=== PATIENT | female | born 1960 | race Caucasian/White ===

== ENCOUNTER 2023-01-04 15:44 | Emergency (ER) | payer MEDICAID, OTHER ==
[~2023-01-04] VITALS: Ht 157.5 cm; Wt 53.1 kg
[~2023-01-04 15:44] MED LIST: GAB400C PO; LEVO75TA6 PO; LEVO88TA4 PO; METH-562 PO; TAMO20TA9 PO; TRAM-297 PO
[2023-01-04 16:13] VITALS: BP 137/82; PULSE 76; RESP 16; TEMP 97.5; O2SAT 98
== END 2023-01-04 16:58 | disposition home or self-care (01) ==
LOC: ER 15:44
DX: S90.31XA Contusion of right foot, initial encounter (principal); F17.210 Nicotine dependence, cigarettes, uncomplicated; Z88.2 Allergy status to sulfonamides; Z88.6 Allergy status to analgesic agent; Z90.710 Acquired absence of both cervix and uterus; Z98.51 Tubal ligation status; W20.8XXA Other cause of strike by thrown, projected or falling object, initial encounter; Y93.89 Activity, other specified; Y92.89 Other specified places as the place of occurrence of the external cause; Y99.8 Other external cause status
CPT/HCPCS: 73630

== ENCOUNTER → 2023-08-20 | Outpatient (CLI) | payer MEDICAID ==
[~2023-08-20] MED LIST changes: +ALBUTEROL SULF 2.5 MG/0.5ML(0.5%) NEB SOLN ONE
== END | disposition home or self-care (01) ==
LOC: RT 09:15
PROVIDERS: ATTEND Internal Medicine Pulmonary Disease
DX: K44.9 Diaphragmatic hernia without obstruction or gangrene (principal)
CPT/HCPCS: 94060; 94727; 94729

== ENCOUNTER 2024-02-09 16:01 | Inpatient (IN) | payer MEDICAID ==
[~2024-02-09] VITALS: Ht 157.5 cm; Wt 51.8 kg
[~2024-02-09 16:01] MED LIST changes: -ALBUTEROL SULF 2.5 MG/0.5ML(0.5%) NEB SOLN ONE
--- NOTE | 2024-02-09 17:37 | ED.PDOC ---
History of Present Illness HPI Comments HPI: Poor Historian. 62-year-old female complains of approximately nine day history of respiratory symptoms of sore throat cough runny nose and congestion. She also complains of decreased appetite and generalized weakness. She also complains of some occasional dizziness. She also complains of nausea and diarrhea. High Vitals: Temp:98.9 F Heart rate: 85 RR: 18 BP: 113/86 02 sat: 95% on room air PMH: thyroid disease, osteoporosis, gerd, breast cancer PSH: appendix, hernia repair social history: endorses tobacco use, endorses ETOH use, denies drug use medications: levothyroxine, plavix, allergies: NKDA REVIEW OF SYSTEMS: CONSTITUTIONAL: Denies acute: fever, diaphoresis, chills, HEAD: Denies acute: headache, photophobia Eyes: Denies acute: Double vision, vision loss, eye pain, eye discharge. EARS: Denies acute: tinnitus, hearing loss, ear discharge, ear pain, THROAT: Denies acute: swelling, difficulty swallowing , pain with swallowing, change in voice. NECK: Denies acute: neck pain, neck swelling, stiff neck. HEART: Denies acute : chest pain, palpitations, LUNGS: Denies acute: SOB, wheezing, hemoptysis ABDOMEN: Denies acute: melena , hematemesis, hematochezia SKIN: Denies acute: rash, redness, lesions, itchiness. EXTREMITIES: Denies acute: calf pain, numbness, tingling, weakness, denies pain in extremity. Denies acute: Low back pain. Neuro: Denies acute: focal neurological deficit, motor or sensory focal neurological deficit, tremors, seizure like activity, confusion, change in mental status, loss of bowel or bladder function, cauda equina like symptoms. : Denies acute: dysuria, hematuria, flank pain, increase in urinary frequency. PSYCH: Denies acute: hallucination, suicidal ideation, homicidal ideation. FEMALE: Denies acute: abnormal vaginal bleeding, foul odor, unusual discharge. PHYSICAL EXAM: General: no acute distress, awake and alert. Head: normocephalic, atraumatic. Neck: supple, trachea is midline, no swelling. Throat: Normal phonation. Eyes:, no erythema, no purulent discharge, no proptosis, no icterus. Heart: regular rate, regular rhythm, no significant murmur appreciated. Lungs: no apparent respiratory distress, Able to speak in full sentences. No wheezing, no rhonchi, no crackles. No stridors Clear to auscultation bilaterally. Abdomen: non tender to palpation, non distended, soft, no guarding, no rebound, + bowel sounds. Neuro: Awake, Alert, oriented to name, self, situation, follows commands GCS=15. Speech is normal. Skin: no petechia, no purpura, no cyanosis, non-pale, not jaundice. Lower extremities: --no - Pitting edema no deformity, no focal swelling, no calf TTP. Makes eye contact. moves all four extremities. Face: no apparent facial droop. Ambulating in the ED independently. Chief Complaint: Nausea/Vomiting Time Seen by MD: 16:16 Primary Care Provider: ROSA Reviewed Notes: Nurses Notes, Allergies Allergies: Coded Allergies: Hydromorphone (Unverified Allergy, Unknown, 09/08/14) Sulfa Antibiotics (Unverified Allergy, Unknown, 09/08/14) Home Meds Reported Medications Tramadol Hcl (Ultram) 50 Mg Tab, 1 TAB PO Q6HR PRN for MILD PAIN, #30 TAB 09/09/14 Tamoxifen Citrate (Tamoxifen Citrate) 20 Mg Tab, 1 TAB PO DAILY, #30 TAB 5 Refills 09/09/14 Methocarbamol (Robaxin) 500 Mg Tab, 1 TAB PO DAILY, #60 TAB 09/09/14 Levothyroxine Sodium (Levothyroxine Sodium) 75 Mcg Tab, 1 TAB PO DAILY, #30 TAB 5 Refills 09/09/14 Levothyroxine Sodium (Levothyroxine Sodium) 88 Mcg Tab, 1 TAB PO DAILY, #30 TAB 5 Refills 15 Gabapentin (NEURONTIN CAPSULE) 400 Mg Cp, 1 CAP PO DAILY, #90 CAP 2 Refills 09/09/14 Information Source: Patient Mode of Arrival: Ambulatory Past Medical History PAST MEDICAL HISTORY: Cancer, Thyroid Surgical History: Appendectomy, Hernia Repair, Hysterectomy, Tubal Ligation DENSITOMETRIST History: Ovarian Cysts Family History Family History: Unknown Social History Smoker: Cigarettes, Greater Than 1 Pack/Day Alcohol: Denies ETOH Use Drugs: Denies Drug Use Lives In: Home Was a procedure done? Was a procedure done?: No Differential Dx Considerations may include: Includes but not limited to thyroid disease, encephalopathy, electrolyte abnormality, sepsis, infection, intracranial pathology, drug adverse effects, arrhythmia, kidney insufficiency, ACS, CVA, malignancy, anemia GI symptoms: DDX include Diverticulitis, colitis, gastroenteritis, acute abdomen, SBO, enteritis, constipation, volvulus, appendicitis, Gallbladder disease, choledocolithiasis, ascending cholangitis, pancreatitis, intraAbdominal mass/neoplasm, hepatitis, UTI, pylonephritis, kidney stone, aneurysm, dissection, Inflammatory bowel disease, gastroparesis, ischemic bowel, ovarian torsion, ovarian cyst/mass, tubo-ovarian abscess, PID, STD. X-Ray, Labs, Meds, VS Vital Signs Date Time Temp Pulse Resp B/P (MAP) Pulse Ox O2 Delivery O2 Flow Rate FiO2 02/09/24 22:41 97.8 72 16 110/65 (80) 95 97.8 02/09/24 20:09 65 20 99 Room Air 02/09/24 20:09 97.4 65 20 147/76 (99) 99 97.4 02/09/24 16:40 98.9 85 18 113/86 (95) 95 Lab Test 02/09/24 22:33 02/09/24 21:40 02/09/24 18:54 02/09/24 18:04 Range/Units Influenza Type A Antigen Pending Influenza Type B Antigen Pending SARS-CoV-2 Antigen (Rapid) Pending Urine Color Colorless Yellow Urine Clarity Clear Clear Urine pH 6.5 5.0-9.0 Urine Specific [place] 1.005 1.001-1.035 Urine Protein Negative Negative Urine Ketones Negative Negative Urine Blood Negative Negative /uL Urine Nitrite Negative Negative Urine Bilirubin Negative Negative Urine Urobilinogen Normal Negative mg/dL Urine Leukocyte Esterase Trace Negative /uL Urine RBC None seen 0 - 4 /hpf Urine WBC 1 0 - 5 /hpf Urine Squamous Epithelial Cells Few <5 /hpf Urine Bacteria None seen None Seen /hpf Urine Glucose Normal Normal mg/dL Troponin I High Sensitivity 5 6 </=34 ng/L Sodium Level 142 136-145 mmol/L Potassium Level 2.9 L 3.5-5.1 mmol/L Chloride Level 108 H 98-107 mmol/L Carbon Dioxide Level 27 20-31 mmol/L Anion Gap 7 5-15 Blood Urea Nitrogen 21 9-23 mg/dL Creatinine 0.89 0.550-1.02 mg/dL Glomerular Filtration Rate Calc 73 >90 mL/min BUN/Creatinine Ratio 23.6 H 10.0-20.0 Serum Glucose 90 74-106 mg/dL Lactic Acid Level 0.7 0.4-2.0 mmol/L Calcium Level 9.6 8.7-10.4 mg/dL Magnesium Level 1.9 1.6-2.6 mg/dL Total Bilirubin 0.4 0.2-1.0 mg/dL Aspartate Amino Transferase (AST) 31 13-40 U/L Alanine Aminotransferase (ALT) 29 7-40 U/L Alkaline Phosphatase 88 46-116 U/L B-Type Natriuretic Peptide 22.22 0-100 pg/mL Total Protein 6.9 5.7-8.2 g/dL Albumin 4.3 3.2-4.8 g/dL Lipase 35 12-53 U/L Test 02/09/24 13:04 Range/Units White Blood Count 5.3 4.4-10.8 10^3/uL Red Blood Count 4.35 4.0-5.20 10^6/uL Hemoglobin 13.6 12.2-16.2 g/dL Hematocrit 41.6 36.0-46.0 % Mean Corpuscular Volume 95.6 80.0-100.0 fL Mean Corpuscular Hemoglobin 31.4 28.0-32.0 pg Mean Corpuscular Hemoglobin Concent 32.8 32.0-36.0 g/dL Red Cell Distribution Width 14.4 H 11.8-14.3 % Platelet Count 257 140-450 10^3/uL Mean Platelet Volume 8.7 6.9-10.8 fL Neutrophils (%) (Auto) 62.4 37.0-80.0 % Lymphocytes (%) (Auto) 25.2 10.0-50.0 % Monocytes (%) (Auto) 10.7 0.0-12.0 % Eosinophils (%) (Auto) 1.4 0.0-7.0 % Basophils (%) (Auto) 0.3 0.0-2.0 % Neutrophils # (Auto) 3.3 1.6-8.6 10 ^3/uL Lymphocytes # (Auto) 1.3 0.4-5.4 10 ^3/uL Monocytes # (Auto) 0.6 0-1.3 10 ^3/uL Eosinophils # (Auto) 0.1 0-0.8 10 ^3/uL Basophils # (Auto) 0 0-0.2 10 ^3/uL Nucleated Red Blood Cells 0.1 % Current Medications Medications (Trade) Dose Ordered Sig/Yenni Route Start Time Stop Time Status Last Admin Sodium Chloride 1,000 ml @ 1,000 mls/hr Q1H ONCE IV 02/09/24 17:45 02/09/24 18:44 DC 02/09/24 19:52 Ondansetron HCl (Zofran) 8 mg ONCE ONCE IV 02/09/24 17:45 02/09/24 17:46 DC 02/09/24 20:05 Potassium Chloride (Klor-Con Tablet) 60 meq ONCE ONCE PO 02/09/24 19:00 02/09/24 19:23 DC 02/09/24 19:52 Pantoprazole Sodium (Protonix Tablet) 40 mg ONCE ONCE PO 02/09/24 21:45 02/09/24 21:46 DC 02/09/24 21:58 Sucralfate (Carafate Tab) 1 gm ONCE ONCE PO 02/09/24 21:45 02/09/24 21:46 DC 02/09/24 21:58 [place] [id number] Ph: [phone] DIAGNOSTIC IMAGING Diagnostic Imaging Report : [id number] Signed PATIENT: RAFIQ CRAWFORD ACCT: [id number] UNIT: [id number] : 1960 LOC: ER ROOM / BED: / AGE / SEX: 63 / F ADM STATUS: REG ER SERVICE [id number] ORDERING PHYSICIAN: VELMA FULLER DO PROCEDURE(s): ABPL - CT AB PEL WO CON-NO ORAL OR IV REASON: N/D abd pain ORDER NUMBER(s): [id number], ACCESSION NUMBER(s): [id number] Procedure: CT CT AB PEL WO CON-NO ORAL OR IV 02/09/2024 06:39 PM Indication:N/D abd pain. Comparison Study: None available at time of dictation. Technique: Axial images were obtained and reformatted in coronal and sagittal planes. All CT scans at this medical facility are performed using dose modulation techniques as appropriate to a performed exam including the following: Automated exposure control was utilized; adjustment of the MA and/or KV according to patient size; and use of iterative reconstruction technique. CT Dose: CTDI volume is 5.07 mGy. Dose-length product is 249.58 mGy*cm FINDINGS: Lower Chest: Unremarkable. Hepatobiliary: Unremarkable. Spleen: Unremarkable. Pancreas: Unremarkable. Adrenal Glands: Unremarkable. tract: The kidneys are normal in size bilaterally without hydronephrosis or nephrolithiasis. The urinary bladder is unremarkable. GI tract: Distal esophageal mural thickening noted. The stomach is grossly normal in appearance. No evidence of small bowel obstruction. The large bowel is unremarkable. The appendix is not visualized. No inflammatory change is noted in the right lower quadrant. Surgical clips are seen in the right lower quadrant which may indicate prior appendectomy. Lymphatics: No mesenteric, retroperitoneal or periportal lymphadenopathy. Vasculature: Aorta is normal in caliber. Scattered calcified plaques are noted. Pelvic Organs: Unremarkable Bones/soft tissues: No acute abnormality. Other: None. IMPRESSION: 1. No CT evidence for acute intra-abdominal or intrapelvic process. No evidence of bowel obstruction or enteritis. 2. Distal esophageal mural thickening suggestive of esophagitis. ATED BY: MERARI SWANSON MD DICTATED DATE/TIME: 02/09/241924 SIGNED BY: MERARI SWANSON MD SIGNED DATE/TIME: 02/09/241924 CC: Time of 1ST Reevaluation: 22:49 Reevaluation 1ST: Improved Patient Education/Counseling: Diagnosis, Treatment Family Education/Counseling: No Family Present Comments Patient presented with the above HPI.--generalized weakness-and GI symptoms---workup was initiated. patient was found with the above mentioned diagnosis. Patient was given: Fluids, potassium replacement, Zofran, Protonix, Carafate. Patient ED course and VS have been stabilized. Patient has been reassessed in the ED and remained in a stable condition. Pertinent incidental findings were discussed with the patient and/or family. Patient/family voices understanding and is agreeable with plan. Patient has been observed in the ED adequate length of time to insure improvement/stability. patient was admitted to the medicine team for further evaluation and treatment of their presentation. Stool studies are still pending. All the reports of any imaging studies that were ordered by myself were reviewed by myself. Departure 1 Departure Time of Disposition: 19:45 Impression: Primary Impression: Generalized weakness Additional Impressions: Hypokalemia Diarrhea Disposition: ADMITTED INPATIENT Admit to: Tele Condition: Guarded Discharged With: Self Critical Care Note Critical Care Time?: No Heart Score Heart Score: Heart Score Response (Comments) Value History Slightly Suspicious 0 EKG Normal 0 Age >65 2 Risk Factors No known risk factors 0 Troponin Normal limit 0 Total 2 I personally scribed for VELMA FULLER DO ([email or web address]) on 02/09/24 at 17:37. Electron[facility] submitted by Al [facility] I personally scribed for VELMA FULLER DO ([email or web address]) on 02/09/24 at 18:09. Electronically submitted by Al Walter ([employer]). I personally scribed for VELMA FULLER DO ([email or web address]) on 02/09/24 at 19:47. Electronically submitted by Al Walter [facility] VELMA FULLER DO Feb 09, 2024 17:37
[2024-02-09 18:13] LABS: Basophils # (auto) 0 10 ^3/uL (0-0.2); Basophils % (auto) 0.3 % (0.0-2.0); Eosinophils # (auto) 0.1 10 ^3/uL (0-0.8); Eosinophils % (auto) 1.4 % (0.0-7.0); Hematocrit 41.6 % (36.0-46.0); Hemoglobin 13.6 g/dL (12.2-16.2); Lymphocytes # (auto) 1.3 10 ^3/uL (0.4-5.4); Lymphocytes % (auto) 25.2 % (10.0-50.0); Mean Corpuscular Hemoglobin 31.4 pg (28.0-32.0); Mean Corpuscular Hgb Conc. 32.8 g/dL (32.0-36.0); Mean Corpuscular Volume 95.6 fL (80.0-100.0); Monocytes # (auto) 0.6 10 ^3/uL (0-1.3); Monocytes % (auto) 10.7 % (0.0-12.0); Neutrophils # (auto) 3.3 10 ^3/uL (1.6-8.6); Neutrophils % (auto) 62.4 % (37.0-80.0); Nucleated Red Blood Cells % 0.1 %; Platelet Count (auto) 257 10^3/uL (140-450); Red Blood Cells 4.35 10^6/uL (4.0-5.20); Red Cell Distribution Width 14.4 % (11.8-14.3); White Blood Cell 5.3 10^3/uL (4.4-10.8)
[2024-02-09 18:31] LABS: Alanine Aminotransferase 29 U/L (7-40); Albumin 4.3 g/dL (3.2-4.8); Alkaline Phosphatase 88 U/L (46-116); Anion Gap 7 (5-15); Aspartate Aminotransferase 31 U/L (13-40); BUN/Creatinine Ratio 23.6 (10.0-20.0); Blood Urea Nitrogen 21 mg/dL (9-23); Calcium 9.6 mg/dL (8.7-10.4); Carbon Dioxide 27 mmol/L (20-31); Chloride 108 mmol/L (98-107); Glucose 90 mg/dL (74-106); Magnesium 1.9 mg/dL (1.6-2.6); Potassium 2.9 mmol/L (3.5-5.1); Sodium 142 mmol/L (136-145)
[2024-02-09 18:32] LABS: Bilirubin, Total 0.4 mg/dL (0.2-1.0); Total Protein 6.9 g/dL (5.7-8.2)
[2024-02-09 18:48] LABS: Lipase 35 U/L (12-53)
--- NOTE | 2024-02-09 19:28 | DVH ---
Procedure: CT CT AB PEL WO CON-NO ORAL OR IV 02/09/2024 06:39 PM Indication:N/D abd pain. Comparison Study: None available at time of dictation. Technique: Axial images were obtained and reformatted in coronal and sagittal planes. All CT scans at this medical facility are performed using dose modulation techniques as appropriate t o a performed exam including the following: Automated exposure control was utilized; adjustment of th e MA and/or KV according to patient size; and use of iterative reconstruction technique. CT Dose: CTDI volume is 5.07 mGy. Dose-length product is 249.58 mGy*cm FINDINGS: Lower Chest: Unremarkable. Hepatobiliary: Unremarkable. Spleen: Unremarkable. Pancreas: Unremarkable. Adrenal Glands: Unremarkable. tract: The kidneys are normal in size bilaterally without hydronephrosis or nephrolithiasis. The urinary bladder is unremarkable. GI tract: Distal esophageal mural thickening noted. The stomach is grossly normal in appearance. No evidence of small bowel obstruction. The large bowel is unremarkable. The appendix is not visualize d. No inflammatory change is noted in the right lower quadrant. Surgical clips are seen in the right lower quadrant which may indicate prior appendectomy. Lymphatics: No mesenteric, retroperitoneal or periportal lymphadenopathy. Vasculature: Aorta is normal in caliber. Scattered calcified plaques are noted. Pelvic Organs: Unremarkable Bones/soft tissues: No acute abnormality. Other: None. IMPRESSION: 1. No CT evidence for acute intra-abdominal or intrapelvic process. No evidence of bowel obstruction or enteritis. 2. Distal esophageal mural thickening suggestive of esophagitis.
[2024-02-09] MEDS: SODIUM CHLORIDE 0.9% 1,000 ML IV ONE (19:52)
[2024-02-09] MEDS: POTASSIUM CHL 20 Meq TABLET PO ONE (19:52)
[2024-02-09] MEDS: ONDANSETRON HCL 4 MG/2 ML VIAL IV ONE (20:05)
[2024-02-09 21:58] LABS: Urine Bacteria None Seen /hpf (None Seen)
[2024-02-09] MEDS: SUCRALFATE 1 GM TAB PO ONE (21:58)
[2024-02-09] MEDS: PANTOPRAZOLE 40 MG TAB PO ONE (21:58)
[2024-02-09 22:10] LABS: Urine Blood Negative /uL (Negative); Urine Clarity Clear (Clear); Urine Color Colorless (Yellow); Urine Protein, UAD Negative (Negative); Urine Specific Gravity 1.005 (1.001-1.035); Urine Urobilinogen Normal (Negative); Urine WBC 1 /hpf (0 - 5); Urine pH 6.5 (5.0-9.0)
[2024-02-09 23:00] VITALS: O2SAT 98
--- NOTE | 2024-02-09 23:07 | DVH ---
CHEST RADIOGRAPH Indication:sob, cough Technique: Single frontal view of the chest was obtained Comparison: None FINDINGS: Lines and Tubes: None Lungs: No focal consolidation. Pleura: No effusion. No pneumothorax. Cardiomediastinal contours: Unremarkable Bones: No acute osseous abnormality. IMPRESSION: No acute cardiopulmonary disease.
[2024-02-09 23:11] LABS: Rapid Influenza A Negative (Negative); Rapid Influenza B Negative (Negative)
[2024-02-09 23:12] LABS: COVID19 ANTIGEN SOFIA FIA NEGATIVE (NEGATIVE)
[2024-02-10] VITALS (8 sets, daily range): BP systolic 97–135; BP diastolic 50–74; PULSE 63–71; RESP 16–18; TEMP 97.5–98.4; O2SAT 90–99
[2024-02-10] MEDS ORDERED: ONDANSETRON HCL 4 MG/2 ML VIAL IV PRN
--- NOTE | 2024-02-10 00:06 | DVHHP2 ---
History of Present Illness Reason for Visit: Diarrhea History of Present Illness 63-year-old female presents for evaluation of diarrhea. The patient endorses a one-week history of having watery diarrhea. She associates having generalized weakness, fatigue, decreased appetite, runny nose and nausea. Denies fever or chills. No cardiac or respiratory complaints. Past Medical History Hypothyroid, breast cancer, GERD, osteoporosis Past Surgical History Appendectomy and hernia repair Smoke: <1 pack per day ALCOHOL: none Drugs: None Lives: with Family Review of Systems Review of Systems Review of systems are currently negative otherwise addressed in HPI. Allergies: Coded Allergies: Hydromorphone (Unverified Allergy, Unknown, 09/08/14) Sulfa Antibiotics (Unverified Allergy, Unknown, 09/08/14) Medications Current Medications Medications Dose Ordered Sig/Yenni Route Start Time Stop Time Status Last Admin Dose Admin Pantoprazole Sodium 40 mg DAILY@0600 PO 02/10/24 06:00 UNV Ceftriaxone Sodium 50 ml @ 100 mls/hr DAILY@09 IV 02/10/24 09:00 UNV Metronidazole 100 ml @ 100 mls/hr Q8HR IV 02/10/24 06:00 UNV Levothyroxine Sodium 88 mcg QAM@0600 PO 02/10/24 06:00 UNV Gabapentin 400 mg DAILY PO 02/10/24 10:00 UNV Loperamide HCl 2 mg PRN PRN PO 02/10/24 00:00 UNV Acetaminophen/ Hydrocodone Bitart 1 tab Q4HP PRN PO 02/10/24 00:00 UNV Ondansetron HCl 4 mg Q4HP PRN IV 02/10/24 00:00 UNV Acetaminophen 650 mg Q6HP PRN PO 02/10/24 00:00 UNV Exam Vital Signs Vital Signs Date Time Temp Pulse Resp B/P (MAP) Pulse Ox O2 Delivery O2 Flow Rate FiO2 02/09/24 23:00 98 Room Air* 0 21 02/09/24 22:41 97.8 72 16 110/65 (80) 97.8 Exam Gen: 62-year-old female in mild distress Skin: Warm, dry, normal color and texture, no rash. HEENT: Normocephalic atraumatic, mucous membranes moist and pink. Neck: Cervical and supraclavicular nodes normal without enlargement, trachea is midline, thyroid gland is normal without masses. Pulmonary: Clear to auscultation and percussion bilaterally. Cardiac: Regular rate and rhythm. No murmur Abdomen: Soft, nontender, nondistended, bowel sounds present all 4 quadrants, no guarding, no rigidity, no organomegaly. Extremities: No cyanosis, clubbing, no edema Neuro: Cranial nerves II through XII grossly intact, normal affect and speech, no focal motor deficits. Labs/Xrays ORDERING PHYSICIAN: VELMA FULLER DO PROCEDURE(s): ABPL - CT AB PEL WO CON-NO ORAL OR IV REASON: N/D abd pain ORDER NUMBER(s): [id number], ACCESSION NUMBER(s): [id number] Procedure: CT CT AB PEL WO CON-NO ORAL OR IV 02/09/2024 06:39 PM Indication:N/D abd pain. Comparison Study: None available at time of dictation. Technique: Axial images were obtained and reformatted in coronal and sagittal planes. All CT scans at this medical facility are performed using dose modulation techniques as appropriate to a performed exam including the following: Automated exposure control was utilized; adjustment of the MA and/or KV according to patient size; and use of iterative reconstruction technique. CT Dose: CTDI volume is 5.07 mGy. Dose-length product is 249.58 mGy*cm FINDINGS: Lower Chest: Unremarkable. Hepatobiliary: Unremarkable. Spleen: Unremarkable. Pancreas: Unremarkable. Adrenal Glands: Unremarkable. tract: The kidneys are normal in size bilaterally without hydronephrosis or nephrolithiasis. The urinary bladder is unremarkable. GI tract: Distal esophageal mural thickening noted. The stomach is grossly normal in appearance. No evidence of small bowel obstruction. The large bowel is unremarkable. The appendix is not visualized. No inflammatory change is noted in the right lower quadrant. Surgical clips are seen in the right lower quadrant which may indicate prior appendectomy. Lymphatics: No mesenteric, retroperitoneal or periportal lymphadenopathy. Vasculature: Aorta is normal in caliber. Scattered calcified plaques are noted. Pelvic Organs: Unremarkable Bones/soft tissues: No acute abnormality. Other: None. IMPRESSION: 1. No CT evidence for acute intra-abdominal or intrapelvic process. No evidence of bowel obstruction or enteritis. 2. Distal esophageal mural thickening suggestive of esophagitis. Labs Test 02/09/24 22:33 02/09/24 21:40 02/09/24 18:54 02/09/24 18:04 Range/Units Influenza Type A Antigen Negative Negative Influenza Type B Antigen Negative Negative SARS-CoV-2 Antigen (Rapid) Negative NEGATIVE Urine Color Colorless Yellow Urine Clarity Clear Clear Urine pH 6.5 5.0-9.0 Urine Specific [place] 1.005 1.001-1.035 Urine Protein Negative Negative Urine Ketones Negative Negative Urine Blood Negative Negative /uL Urine Nitrite Negative Negative Urine Bilirubin Negative Negative Urine Urobilinogen Normal Negative mg/dL Urine Leukocyte Esterase Trace Negative /uL Urine RBC None seen 0 - 4 /hpf Urine WBC 1 0 - 5 /hpf Urine Squamous Epithelial Cells Few <5 /hpf Urine Bacteria None seen None Seen /hpf Urine Glucose Normal Normal mg/dL Troponin I High Sensitivity 5 </=34 ng/L Sodium Level 142 136-145 mmol/L Potassium Level 2.9 L 3.5-5.1 mmol/L Chloride Level 108 H 98-107 mmol/L Carbon Dioxide Level 27 20-31 mmol/L Anion Gap 7 5-15 Blood Urea Nitrogen 21 9-23 mg/dL Creatinine 0.89 0.550-1.02 mg/dL Glomerular Filtration Rate Calc 73 >90 mL/min BUN/Creatinine Ratio 23.6 H 10.0-20.0 Serum Glucose 90 74-106 mg/dL Lactic Acid Level 0.7 0.4-2.0 mmol/L Calcium Level 9.6 8.7-10.4 mg/dL Magnesium Level 1.9 1.6-2.6 mg/dL Total Bilirubin 0.4 0.2-1.0 mg/dL Aspartate Amino Transferase (AST) 31 13-40 U/L Alanine Aminotransferase (ALT) 29 7-40 U/L Alkaline Phosphatase 88 46-116 U/L B-Type Natriuretic Peptide 22.22 0-100 pg/mL Total Protein 6.9 5.7-8.2 g/dL Albumin 4.3 3.2-4.8 g/dL Lipase 35 12-53 U/L Test 02/09/24 13:04 Range/Units White Blood Count 5.3 4.4-10.8 10^3/uL Red Blood Count 4.35 4.0-5.20 10^6/uL Hemoglobin 13.6 12.2-16.2 g/dL Hematocrit 41.6 36.0-46.0 % Mean Corpuscular Volume 95.6 80.0-100.0 fL Mean Corpuscular Hemoglobin 31.4 28.0-32.0 pg Mean Corpuscular Hemoglobin Concent 32.8 32.0-36.0 g/dL Red Cell Distribution Width 14.4 H 11.8-14.3 % Platelet Count 257 140-450 10^3/uL Mean Platelet Volume 8.7 6.9-10.8 fL Neutrophils (%) (Auto) 62.4 37.0-80.0 % Lymphocytes (%) (Auto) 25.2 10.0-50.0 % Monocytes (%) (Auto) 10.7 0.0-12.0 % Eosinophils (%) (Auto) 1.4 0.0-7.0 % Basophils (%) (Auto) 0.3 0.0-2.0 % Neutrophils # (Auto) 3.3 1.6-8.6 10 ^3/uL Lymphocytes # (Auto) 1.3 0.4-5.4 10 ^3/uL Monocytes # (Auto) 0.6 0-1.3 10 ^3/uL Eosinophils # (Auto) 0.1 0-0.8 10 ^3/uL Basophils # (Auto) 0 0-0.2 10 ^3/uL Nucleated Red Blood Cells 0.1 % Assessment/Plan Assessment/Plan Assessment Generalized weakness Electrolyte imbalance Diarrhea Plan Admit the patient to [facility] to the hospitalist Replete electrolytes Rocephin/Flagyl Stool bacterial culture pending Continue treatment per orders. Plan discussed with: Patient My Orders [facility] Procedure Category Date Status Time Pantoprazole Tablet PHA 02/10/24 Logged (Protonix Tablet) 06:00 Ceftriaxone 1gm/50ml PHA 02/10/24 Logged D5w (Rocephin) 09:00 Ceftriaxone 1gm/50ml PHA 02/10/24 Logged D5w (Rocephin) 00:00 Metronidazole PHA 02/10/24 Logged 500mg/100ml (Flagyl 06:00 Metronidazole PHA 02/10/24 Logged 500mg/100ml (Flagyl 00:00 Levothyroxine Tablet PHA 02/10/24 Logged (Synthroid Tablet) 06:00 Gabapentin Capsule PHA 02/10/24 Logged (Neurontin Capsule) 10:00 Loperamide Capsule PHA 02/10/24 Logged (Imodium Capsule) 00:00 Loperamide Capsule PHA 02/10/24 Logged (Imodium Capsule) 00:00 Basic Metabolic Panel LAB 02/10/24 Logged 04:00 Admit ADMIT 02/09/24 Transmitted 23:52 Hydrocodone-Acet PHA 02/10/24 Logged 5/325mg Tab ([place] 00:00 Ondansetron Hcl PHA 02/10/24 Logged (Zofran) 00:00 Complete Blood Count LAB 02/10/24 Transmitted 04:00 Condition: Stable LOGAN 02/09/24 In Process 23:52 Acetaminophen Tablet PHA 02/10/24 Logged (Tylenol Tablet) 00:00 Clear Liq Diet DIET 02/10/24 Transmitted Breakfast Bedrest With Bathroom LOGAN 02/09/24 In Process Privileg 23:52 Date of Service: Feb 09, 2024 Billing Provider: JOCELYN MOMIN Common Visit Codes: [id number] INP/OBS CARE (HIGH) JOCELYN MOMIN Feb 10, 2024 00:06
[2024-02-10] MEDS: cefTRIAXone 1GM/50ML D5W 50 ML IV ONE (00:44)
[2024-02-10] MEDS: LOPERAMIDE HCL 2 MG CAP/TAB PO ONE (00:45)
[2024-02-10] MEDS: metroNIDAZOLE 500MG/100ML 100 ML IV ONE (00:45)
[2024-02-10] MEDS: HYDROcodone-ACET 5/325MG TAB PO PRN (04:31)
[2024-02-10] MEDS: LOPERAMIDE HCL 2 MG CAP/TAB PO PRN (04:32)
[2024-02-10] MEDS: LEVOTHYROXINE SODIUM 88 MCG TAB PO SCH (05:59)
[2024-02-10] MEDS: PANTOPRAZOLE 40 MG TAB PO SCH (06:00)
[2024-02-10] MEDS: metroNIDAZOLE 500MG/100ML 100 ML IV SCH (08:43)
[2024-02-10 08:49] LABS: Basophils # (auto) 0 10 ^3/uL (0-0.2); Basophils % (auto) 0.3 % (0.0-2.0); Eosinophils # (auto) 0.1 10 ^3/uL (0-0.8); Eosinophils % (auto) 1.4 % (0.0-7.0); Hemoglobin 11.4 g/dL (12.2-16.2); Lymphocytes # (auto) 1.7 10 ^3/uL (0.4-5.4); Lymphocytes % (auto) 31.5 % (10.0-50.0); Mean Corpuscular Hemoglobin 31.4 pg (28.0-32.0); Mean Corpuscular Hgb Conc. 32.4 g/dL (32.0-36.0); Mean Corpuscular Volume 96.7 fL (80.0-100.0); Monocytes # (auto) 0.7 10 ^3/uL (0-1.3); Monocytes % (auto) 12.6 % (0.0-12.0); Neutrophils # (auto) 2.9 10 ^3/uL (1.6-8.6); Neutrophils % (auto) 54.2 % (37.0-80.0); Platelet Count (auto) 211 10^3/uL (140-450); Red Blood Cells 3.62 10^6/uL (4.0-5.20); Red Cell Distribution Width 14.4 % (11.8-14.3); White Blood Cell 5.3 10^3/uL (4.4-10.8)
[2024-02-10 09:00] LABS: Chloride 112 mmol/L (98-107); Potassium 3.3 mmol/L (3.5-5.1); Sodium 142 mmol/L (136-145)
[2024-02-10 09:01] LABS: Anion Gap 6 (5-15); Carbon Dioxide 24 mmol/L (20-31)
[2024-02-10 09:02] LABS: Calcium 8.7 mg/dL (8.7-10.4)
[2024-02-10 09:06] LABS: BUN/Creatinine Ratio 18.2 (10.0-20.0); Blood Urea Nitrogen 14 mg/dL (9-23); Glucose 114 mg/dL (74-106)
[2024-02-10] MEDS ORDERED: GABAPENTIN 300 MG CAP PO SCH (10:00)
[2024-02-10] MEDS: GABAPENTIN 400 MG CAP PO SCH (12:26)
[2024-02-10] MEDS: POTASSIUM CHLORIDE 40 MEQ in SOD CHL 0.45% 1,000 ML IV SCH (13:04)
--- NOTE | 2024-02-10 14:56 | DVHPN2 ---
Subjective Patient continues to report having abdominal pain and persistent diarrhea. Reviewed: Care Plan, H&P, Medications Changes from previous H/P or p: No Changes General: Per HPI Objective Vitals Vital Signs Date Time Temp Pulse Resp B/P (MAP) Pulse Ox O2 Delivery O2 Flow Rate FiO2 02/10/24 12:43 98.1 66 18 104/59 (74) 96 98.1 02/10/24 08:00 Room Air* 0 21 Intake/Output Intake and Output 02/10/24 07:00 Intake Total 1390 ml Balance 1390 ml Intake Oral 240 ml IV Total 1150 ml # Voids 3 # Bowel Movements 3 General Appearance: Alert, Oriented X3, Cooperative, No acute distress HEENT: Atraumatic, PERRLA Cardiovascular: Normal S1, Normal S2 Abdomen: Normal bowel sounds, Soft, No tenderness Genitourinary: No Apparent Abnormalities Musculoskeletal: Normal sensory function, Normal motor function Neuro: Normal gait, Normal speech Psych/Mental Status: Mental status NL, Mood NL Medications Current Medications Medications Dose Ordered Sig/Yenni Route Start Time Stop Time Status Last Admin Dose Admin Pantoprazole Sodium 40 mg DAILY@0600 PO 02/10/24 06:00 02/10/24 06:00 40 MG Metronidazole 100 ml @ 100 mls/hr Q8H IV 02/10/24 08:00 02/10/24 08:43 100 MLS/HR Levothyroxine Sodium 88 mcg QAM@0600 PO 02/10/24 06:00 02/10/24 05:59 88 MCG Gabapentin 400 mg DAILY PO 02/10/24 10:00 UNV Loperamide HCl 2 mg PRN PRN PO 02/10/24 00:00 02/10/24 04:32 2 MG Ondansetron HCl 4 mg Q4HP PRN IV 02/10/24 00:00 Acetaminophen 650 mg Q6HP PRN PO 02/10/24 00:00 Gabapentin 400 mg DAILY PO 02/10/24 10:00 02/10/24 12:26 400 MG Potassium Chloride 40 meq/ Sodium Chloride 1,020 ml @ 100 mls/hr [id number] IV 02/10/24 11:30 02/10/24 21:41 02/10/24 13:04 100 MLS/HR Saccharomyces Boulardii 250 mg DAILY PO 02/11/24 10:00 UNV Vancomycin HCl 125 mg QID PO 02/10/24 18:00 UNV Oxycodone/ Acetaminophen 2 tab Q6HP PRN PO 02/10/24 14:45 UNV Laboratory Results Laboratory Tests 02/10/24 07:58 Chemistry Test 02/09/24 18:04 02/10/24 07:58 Albumin 4.3 g/dL (3.2-4.8) Calcium Level 9.6 mg/dL (8.7-10.4) 8.7 mg/dL (8.7-10.4) Magnesium Level 1.9 mg/dL (1.6-2.6) Total Protein 6.9 g/dL (5.7-8.2) Lipid panel Test 02/09/24 18:04 Lipase 35 U/L (12-53) Cardiac Markers Test 02/09/24 18:04 B-Type Natriuretic Peptide 22.22 pg/mL (0-100) LFT Test 02/09/24 18:04 Alanine Aminotransferase (ALT) 29 U/L (7-40) Alkaline Phosphatase 88 U/L (46-116) Aspartate Amino Transferase (AST) 31 U/L (13-40) Total Bilirubin 0.4 mg/dL (0.2-1.0) Urinalysis Test 02/09/24 21:40 Urine Color Colorless (Yellow) Urine Clarity Clear (Clear) Urine pH 6.5 (5.0-9.0) Urine Specific [place] 1.005 (1.001-1.035) Urine Protein Negative (Negative) Urine Ketones Negative (Negative) Urine Blood Negative /uL (Negative) Urine Nitrite Negative (Negative) Urine Bilirubin Negative (Negative) Urine Urobilinogen Normal mg/dL (Negative) Urine Leukocyte Esterase Trace /uL (Negative) Urine RBC None seen /hpf (0 - 4) Urine WBC 1 /hpf (0 - 5) Urine Squamous Epithelial Cells Few /hpf (<5) Urine Bacteria None seen /hpf (None Seen) Urine Glucose Normal mg/dL (Normal) Microbiology Microbiology Date/Time Source Procedure Growth Status 02/09/24 21:40 Stool Stool Culture Pending Resulted 02/09/24 21:40 Stool Shiga Toxin I & II Pending Resulted 02/09/24 21:40 Stool Clostridium difficile Toxin Assay - Final Resulted Labs and/or images reviewed: Labs reviewed by me, Image(s) reviewed by me Assessment/Plan Assessment/Plan Impression: -C diff colitis -hypokalemia -fibromyalgia -chronic opiate use -coronary artery disease with previous stent placement -chronic sinus infection Plan: -start C diff protocol with vancomycin, Flagyl, Florastor -change to regular diet -pain management: Stop Bonita start a Percocet -potassium replacement -IV hydration -CT scan of sinus -repeat labs in a.m. Total time spent with patient discussing and formulating plan of care: 35 minutes. This medical document was created using an electronic medical record system with [employer] dictation system. Although this document has been carefully reviewed, there may still be some phonetic and typographical errors. These areas are purely typographical due to imperfections of the software programs, and do not reflect any compromise in the patient's medical care. Plan discussed with: Patient, Other (RN) My Orders Orders - CHELLY SAN NP Procedure Category Date Status Time Sod Chl 0.45% PHA 02/10/24 In Process (Sodi... W/Potassium 11:30 Basic Metabolic Panel LAB 02/11/24 Verified 04:00 Magnesium LAB 02/11/24 Verified 04:00 Complete Blood Count LAB 02/11/24 Verified 04:00 Florastor (S. PHA 02/11/24 Logged Boulardii) (Florastor) 10:00 Vancomycin Po PHA 02/10/24 Logged 18:00 Oxycodone W/ Acet PHA 02/10/24 Logged 5/325mg Tab (Percocet 14:45 Cardiac DIET 02/10/24 Transmitted Diet-2gna,Lofat,Lochol Dinner Date of Service: Feb 10, 2024 Billing Provider: CHELLY SAN NP Common Visit Codes: [id number] INP/OBS CARE(HIGH) CHELLY SAN NP Feb 10, 2024 14:56
--- NOTE | 2024-02-10 16:05 | DVH ---
CLINICAL INFORMATION: 63 years old, Female; persistent sinus infection. TECHNIQUE: Axial CT images of the paranasal sinuses were obtained without contrast. Coronal and sagit honey reformatted images were obtained, reviewed, and stored. One or more of the following dose reducti on techniques were used: Automated exposure control. Adjustment of mA and/or kV according to patient size. CTDIvol = 55.7, 0.07, 0.07 mGy DLP = 772.79 mGy-cm COMPARISON: None FINDINGS: Mild mucosal thickening of the maxillary sinuses. Ostiomeatal complexes are patent. Parti al opacification of the anterior and posterior ethmoid air cells. Sphenoethmoidal recesses and fronta l recesses are patent. Sphenoid sinus is clear. Frontal sinuses are clear. Sinus craig are intact wit h no evidence of dehiscence. Cribriform plate and lamina papyracea are intact. No mass or polyp ident ified in the nasal cavity. Nasal turbinates are within normal limits. Minimal nasal septal deviation. IMPRESSION: 1. Mild paranasal sinus disease as detailed above. 2. Additional nonacute findings as detailed above.
[2024-02-10] MEDS: VANCOMYCIN HCL 125 MG CAP PO SCH (17:34)
[2024-02-10] MEDS: OXYCODONE W/ ACETAMINOPHEN 5/325MG TABLET PO PRN (17:34)
[2024-02-10] MEDS: ACETAMINOPHEN 325 MG TAB PO PRN (20:01)
[2024-02-11] VITALS (7 sets, daily range): BP systolic 104–135; BP diastolic 60–73; PULSE 61–77; RESP 16–18; TEMP 97.7–98.5; O2SAT 64–98
[2024-02-11] MEDS ORDERED: cefTRIAXone 1GM/50ML D5W 50 ML IV SCH
[2024-02-11] MEDS: metroNIDAZOLE 500MG/100ML 100 ML IV SCH (02:21)
[2024-02-11 07:02] LABS: Basophils # (auto) 0 10 ^3/uL (0-0.2); Basophils % (auto) 0.5 % (0.0-2.0); Eosinophils # (auto) 0.1 10 ^3/uL (0-0.8); Eosinophils % (auto) 2.4 % (0.0-7.0); Hemoglobin 12.9 g/dL (12.2-16.2); Lymphocytes # (auto) 1.4 10 ^3/uL (0.4-5.4); Lymphocytes % (auto) 30.4 % (10.0-50.0); Mean Corpuscular Hemoglobin 31.1 pg (28.0-32.0); Mean Corpuscular Hgb Conc. 32.3 g/dL (32.0-36.0); Mean Corpuscular Volume 96.4 fL (80.0-100.0); Monocytes # (auto) 0.6 10 ^3/uL (0-1.3); Monocytes % (auto) 13.2 % (0.0-12.0); Neutrophils # (auto) 2.4 10 ^3/uL (1.6-8.6); Neutrophils % (auto) 53.5 % (37.0-80.0); Nucleated Red Blood Cells % 0.1 %; Platelet Count (auto) 233 10^3/uL (140-450); Red Blood Cells 4.15 10^6/uL (4.0-5.20); Red Cell Distribution Width 14.2 % (11.8-14.3); White Blood Cell 4.5 10^3/uL (4.4-10.8)
[2024-02-11 07:14] LABS: Chloride 113 mmol/L (98-107); Potassium 4.2 mmol/L (3.5-5.1); Sodium 144 mmol/L (136-145)
[2024-02-11 07:15] LABS: Anion Gap 5 (5-15); Calcium 9.8 mg/dL (8.7-10.4); Carbon Dioxide 26 mmol/L (20-31)
[2024-02-11 07:20] LABS: BUN/Creatinine Ratio 14.8 (10.0-20.0); Blood Urea Nitrogen 13 mg/dL (9-23); Glucose 94 mg/dL (74-106)
[2024-02-11 07:21] LABS: Magnesium 1.9 mg/dL (1.6-2.6)
--- NOTE | 2024-02-11 10:01 | DVHPN2 ---
Subjective Patient reports that her diarrhea is less frequent. Reviewed: Care Plan, H&P, Medications Changes from previous H/P or p: Changes General: Per HPI Objective Vitals Vital Signs Date Time Temp Pulse Resp B/P (MAP) Pulse Ox O2 Delivery O2 Flow Rate FiO2 02/11/24 09:00 97.7 68 17 129/70 (89) 96 97.7 02/10/24 19:23 Room Air* 0 21 Intake/Output Intake and Output 02/11/24 07:00 Intake Total 3386 ml Output Total 1500 ml Balance 1886 ml Intake Oral 2686 ml IV Total 700 ml Output Urine Total 1500 ml # Voids 2 # Bowel Movements 4 General Appearance: Alert, Oriented X3, Cooperative, No acute distress HEENT: Atraumatic, PERRLA Cardiovascular: Normal S1, Normal S2 Abdomen: Normal bowel sounds, Soft, No tenderness Genitourinary: No Apparent Abnormalities Musculoskeletal: Normal sensory function, Normal motor function Neuro: Normal gait, Normal speech Psych/Mental Status: Mental status NL, Mood NL Medications Current Medications Medications Dose Ordered Sig/Yenni Route Start Time Stop Time Status Last Admin Dose Admin Pantoprazole Sodium 40 mg DAILY@0600 PO 02/10/24 06:00 02/11/24 05:15 40 MG Levothyroxine Sodium 88 mcg QAM@0600 PO 02/10/24 06:00 02/11/24 05:15 88 MCG Gabapentin 400 mg DAILY PO 02/10/24 10:00 UNV Loperamide HCl 2 mg PRN PRN PO 02/10/24 00:00 02/10/24 04:32 2 MG Ondansetron HCl 4 mg Q4HP PRN IV 02/10/24 00:00 Acetaminophen 650 mg Q6HP PRN PO 02/10/24 00:00 02/10/24 20:01 650 MG Gabapentin 400 mg DAILY PO 02/10/24 10:00 02/10/24 12:26 400 MG Saccharomyces Boulardii 250 mg DAILY PO 02/11/24 10:00 Vancomycin HCl 125 mg QID PO 02/10/24 18:00 02/11/24 05:15 125 MG Oxycodone/ Acetaminophen 2 tab Q6HP PRN PO 02/10/24 14:45 02/10/24 17:34 2 TAB Metronidazole 100 ml @ 100 mls/hr Q8H IV 02/11/24 02:30 11/7/24 02:21 100 MLS/HR Laboratory Results Laboratory Tests 02/11/24 06:16 Chemistry Test 02/11/24 06:16 Calcium Level 9.8 mg/dL (8.7-10.4) Magnesium Level 1.9 mg/dL (1.6-2.6) Urinalysis Test 02/09/24 21:40 Urine Color Colorless (Yellow) Urine Clarity Clear (Clear) Urine pH 6.5 (5.0-9.0) Urine Specific [place] 1.005 (1.001-1.035) Urine Protein Negative (Negative) Urine Ketones Negative (Negative) Urine Blood Negative /uL (Negative) Urine Nitrite Negative (Negative) Urine Bilirubin Negative (Negative) Urine Urobilinogen Normal mg/dL (Negative) Urine Leukocyte Esterase Trace /uL (Negative) Urine RBC None seen /hpf (0 - 4) Urine WBC 1 /hpf (0 - 5) Urine Squamous Epithelial Cells Few /hpf (<5) Urine Bacteria None seen /hpf (None Seen) Urine Glucose Normal mg/dL (Normal) Microbiology Microbiology Date/Time Source Procedure Growth Status 02/09/24 21:40 Stool Stool Culture - Preliminary Resulted 02/09/24 21:40 Stool Shiga Toxin I & II - Final Resulted 02/09/24 21:40 Stool Clostridium difficile Toxin Assay - Final Resulted Labs and/or images reviewed: Labs reviewed by me, Image(s) reviewed by me Assessment/Plan Assessment/Plan Impression: -C diff colitis -hypokalemia -fibromyalgia -chronic opiate use -coronary artery disease with previous stent placement -chronic sinus infection Plan: Events: Patient positive for C diff. treatment already started with vancomycin, Flagyl, Florastor. Patient reports that her pain is better controlled. Patient also reports having decreased frequency of BMs. Continues to have loose stools though. -continue current antibiotic therapy -pain management: Continue Percocet -CT scan of sinus: Results reviewed. No acute pathology -reassess in a.m. for DC planning. Total time spent with patient discussing and formulating plan of care: 35 minutes. This medical document was created using an electronic medical record system with [employer] system. Although this document has been carefully reviewed, there may still be some phonetic and typographical errors. These areas are purely typographical due to imperfections of the software programs, and do not reflect any compromise in the patient's medical care. Plan discussed with: Patient, Other (RN) My Orders Orders - CHELLY SAN NP Procedure Category Date Status Time Florastor (S. PHA 02/11/24 In Process Boulardii) (Florastor) 10:00 Vancomycin Po PHA 02/10/24 In Process 18:00 Oxycodone W/ Acet PHA 02/10/24 In Process 5/325mg Tab (Percocet 14:45 Cardiac DIET 02/10/24 Transmitted Diet-2gna,Lofat,Lochol Dinner Sinus Without Contrast CT 02/10/24 Resulted 14:40 Date of Service: Feb 11, 2024 Billing Provider: CHELLY SAN NP Common Visit Codes: [id number] INP/OBS CARE(HIGH) CHELLY SAN NP Feb 11, 2024 10:01
[2024-02-11] MEDS: FLORASTOR (S. BOULARDII) 250 MG CAP PO SCH (11:28)
[2024-02-12 01:00] VITALS: BP 117/59; PULSE 67; RESP 20; TEMP 98.2; O2SAT 96
[2024-02-12 05:00] VITALS: BP 101/71; PULSE 78; RESP 20; TEMP 97.6; O2SAT 97
[2024-02-12 08:33] VITALS: BP 103/73; PULSE 65; RESP 18; TEMP 97.6; O2SAT 96
[2024-02-12] MEDS ORDERED: VANC125C3 PO (10:45)
--- NOTE | 2024-02-12 10:50 | DVHDS2 ---
Discharge Summary Date of Admission Feb 09, 2024 at 23:52 Date of Discharge: Feb 12, 2024 Admitting Diagnosis Diarrhea Labs/Diagnostic Data: Laboratory Results Test 02/11/24 06:16 02/09/24 22:33 02/09/24 21:40 02/09/24 18:54 White Blood Count 4.5 10^3/uL (4.4-10.8) Red Blood Count 4.15 10^6/uL (4.0-5.20) Hemoglobin 12.9 g/dL (12.2-16.2) Hematocrit 40.0 % (36.0-46.0) Mean Corpuscular Volume 96.4 fL (80.0-100.0) Mean Corpuscular Hemoglobin 31.1 pg (28.0-32.0) Mean Corpuscular Hemoglobin Concent 32.3 g/dL (32.0-36.0) Red Cell Distribution Width 14.2 % (11.8-14.3) Platelet Count 233 10^3/uL (140-450) Mean Platelet Volume 9.3 fL (6.9-10.8) Neutrophils (%) (Auto) 53.5 % (37.0-80.0) Lymphocytes (%) (Auto) 30.4 % (10.0-50.0) Monocytes (%) (Auto) 13.2 % (0.0-12.0) Eosinophils (%) (Auto) 2.4 % (0.0-7.0) Basophils (%) (Auto) 0.5 % (0.0-2.0) Neutrophils # (Auto) 2.4 10 ^3/uL (1.6-8.6) Lymphocytes # (Auto) 1.4 10 ^3/uL (0.4-5.4) Monocytes # (Auto) 0.6 10 ^3/uL (0-1.3) Eosinophils # (Auto) 0.1 10 ^3/uL (0-0.8) Basophils # (Auto) 0 10 ^3/uL (0-0.2) Nucleated Red Blood Cells 0.1 % Sodium Level 144 mmol/L (136-145) Potassium Level 4.2 mmol/L (3.5-5.1) Chloride Level 113 mmol/L (98-107) Carbon Dioxide Level 26 mmol/L (20-31) Anion Gap 5 (5-15) Blood Urea Nitrogen 13 mg/dL (9-23) Creatinine 0.88 mg/dL (0.550-1.02) Glomerular Filtration Rate Calc 74 mL/min (>90) BUN/Creatinine Ratio 14.8 (10.0-20.0) Serum Glucose 94 mg/dL (74-106) Calcium Level 9.8 mg/dL (8.7-10.4) Magnesium Level 1.9 mg/dL (1.6-2.6) Influenza Type A Antigen Negative (Negative) Influenza Type B Antigen Negative (Negative) SARS-CoV-2 Antigen (Rapid) Negative (NEGATIVE) Urine Color Colorless (Yellow) Urine Clarity Clear (Clear) Urine pH 6.5 (5.0-9.0) Urine Specific [place] 1.005 (1.001-1.035) Urine Protein Negative (Negative) Urine Ketones Negative (Negative) Urine Blood Negative /uL (Negative) Urine Nitrite Negative (Negative) Urine Bilirubin Negative (Negative) Urine Urobilinogen Normal mg/dL (Negative) Urine Leukocyte Esterase Trace /uL (Negative) Urine RBC None seen /hpf (0 - 4) Urine WBC 1 /hpf (0 - 5) Urine Squamous Epithelial Cells Few /hpf (<5) Urine Bacteria None seen /hpf (None Seen) Urine Glucose Normal mg/dL (Normal) Stool for White Cells None seen Troponin I High Sensitivity 5 ng/L (</=34) Test 02/09/24 18:04 Lactic Acid Level 0.7 mmol/L (0.4-2.0) Total Bilirubin 0.4 mg/dL (0.2-1.0) Aspartate Amino Transferase (AST) 31 U/L (13-40) Alanine Aminotransferase (ALT) 29 U/L (7-40) Alkaline Phosphatase 88 U/L (46-116) B-Type Natriuretic Peptide 22.22 pg/mL (0-100) Total Protein 6.9 g/dL (5.7-8.2) Albumin 4.3 g/dL (3.2-4.8) Lipase 35 U/L (12-53) Other Laboratory Tests 02/11/24 06:16 Brief Hx & Hospital Course: History of Present Illness 63-year-old female presents for evaluation of diarrhea. The patient endorses a one-week history of having watery diarrhea. She associates having generalized weakness, fatigue, decreased appetite, runny nose and nausea. Denies fever or chills. No cardiac or respiratory complaints. Course of hospitalization: Patient was found to be positive for C diff. patient was started on Florastor, IV Flagyl, as well as p.o. vancomycin. The patient's bowel movements are now formed and less frequent. The patient also reports having improvement with her overall malaise and weakness. She was agreeable to be discharged home and continue with oral antibiotic therapy with vancomycin and 25 mg p.o. 4 times a day for 10 days. She will follow up with the discharge Clinic in one week. She will continue all previous home medications. The patient was also instructed to clean her house with Clorox based wipes as well as washing all her clothes that she was more in the past three weeks in hot water. The patient verbalized understanding. Physical examination General: Alert and Oriented x3. No acute distress. Well-nourished. Eyes: EOMI. Anicteric. HENT: Moist mucous membranes. Lungs: Clear to auscultation bilaterally. No accessory muscle use. Cardiovascular: Regular rate and rhythm. No murmur. No JVD. Abdomen: Soft, non-tender and non-distended. No palpable masses. Extremities: No edema. Non-tender. Skin: No rashes or lesions. Warm. Neurologic: No focal neurological deficits. CN II-XII grossly intact, but not individually tested. Psychiatric: Cooperative. Appropriate mood and affect. Total time spent with patient discussing and formulating plan of care: 35 minutes. This medical document was created using an electronic medical record system with [employer] dictation system. Although this document has been carefully reviewed, there may still be some phonetic and typographical errors. These areas are purely typographical due to imperfections of the software programs, and do not reflect any compromise in the patient's medical care. Condition at Discharge: Fair Final Diagnosis/Problems List C. Diff colitis Secondary Diagnosis: -hypokalemia -fibromyalgia -chronic opiate use -coronary artery disease with previous stent placement -chronic sinus infection Discharge Disposition: Home Discharge Instruct/Medications Diet: Cardiac 2g Na,low cholest Activity: No Restrictions, As Tolerated Follow Up/Referral: Discharge Clinic in one week Medications: Vancomycin 125 mg p.o. 4 times a day times 10 days 36 Discharge Statement: "Patient was advised to return to the ER or call 911 if any headaches, dizziness, shortness of breath, chest pain, abdominal pain, bleeding, fevers, or worsening of medical condition. Patient was counseled about treatment plan, medications, possible side effects, patientverbalized understanding. All questions were answered to the best of my ability. This discharge took greater then 30 minutes in planning, reviewing documentation, counseling the patient, and discussing with other team members." ASSESSMENT ASSESSMENT Assessment C. Diff colitis Date of Service: Feb 12, 2024 Billing Provider: CHELLY SAN NP Common Visit Codes: [id number] DISCH DAY >30min CHELLY SAN NP Feb 12, 2024 10:50
[2024-02-12 13:00] VITALS: BP 103/55; PULSE 74; RESP 18; TEMP 97.5; O2SAT 96
[2024-02-12 13:02] VITALS: BP 103/73; PULSE 65; RESP 18; TEMP 97.6; O2SAT 96
== END 2024-02-12 14:41 | disposition home or self-care (01) | DRG 248 ==
LOC: ER 16:04 → OVERFLOW 23:52 → WEST WING 02-10 03:16 → CENTRAL 02-10 15:12
PROVIDERS: ADMIT Nurse Practitioner; ATTEND Nurse Practitioner Acute Care
DX: A04.72 Enterocolitis due to Clostridium difficile, not specified as recurrent (principal); E03.9 Hypothyroidism, unspecified; E87.6 Hypokalemia; M81.0 Age-related osteoporosis without current pathological fracture; K21.9 Gastro-esophageal reflux disease without esophagitis; F17.210 Nicotine dependence, cigarettes, uncomplicated; Z20.822 Contact with and (suspected) exposure to COVID-19; I25.10 Atherosclerotic heart disease of native coronary artery without angina pectoris; J32.9 Chronic sinusitis, unspecified; M79.7 Fibromyalgia; Z79.891 Long term (current) use of opiate analgesic; Z85.3 Personal history of malignant neoplasm of breast; Z88.5 Allergy status to narcotic agent; Z88.2 Allergy status to sulfonamides; Z95.5 Presence of coronary angioplasty implant and graft; Z90.710 Acquired absence of both cervix and uterus
CPT/HCPCS: 36415; 70486; 71045; 74176; 80048; 80053; 81001; 83605; 83690; 83735; 83880; 84484; 85025; 85048; 87045; 87177; 87426; 87804; G0378; J2405; J3490